=== PATIENT | female | born 1985 | race Caucasian/White ===

== ENCOUNTER 2019-01-16 14:29 | Emergency (ER) | payer SELFPAY ==
[2019-01-16 15:04] LABS: Hematocrit 46 % (35-47); Hemoglobin 15.8 g/dL (12.0-16.0); Mean Corpuscular HGB Conc 34 g/dL (31-36); Mean Corpuscular Hemoglobin 33 pg (27-31); Mean Corpuscular Volume 96 fL (80-97); Red Blood Count 4.83 10^6 /uL (3.70-4.87); Red Cell Distribution Width 14 % (10-15); White Blood Count 6.9 10^3/uL (3.5-10.8)
[2019-01-16 15:18] LABS: INR 1.08 (0.82-1.09)
[2019-01-16 15:26] LABS: ALT 14 U/L (7-52); AST 21 U/L (13-39); Albumin 4.5 g/dL (3.2-5.2); Albumin/Globulin Ratio 2.1 (1-3); Alkaline Phosphatase 58 U/L (34-104); Anion Gap 4 mmol/L (2-11); BUN/Creatinine Ratio 8.4 (8-20); Blood Urea Nitrogen 7 mg/dL (6-24); CO2 Carbon Dioxide 28 mmol/L (22-32); Calcium 9.2 mg/dL (8.6-10.3); Chloride 105 mmol/L (101-111); EGFR African American 94.7 (>60); EGFR Non-African American 78.2 (>60); Globulin 2.1 g/dL (2-4); Glucose 124 mg/dL (70-100); Potassium 4.5 mmol/L (3.5-5.0); Sodium 137 mmol/L (135-145); Total Protein 6.6 g/dL (6.4-8.9); Troponin I 0.01 ng/mL (<0.04)
[2019-01-16 15:36] LABS: ABS Eosinophils 0.1 10^3/ul (0-0.6); ABS Lymphocytes 1.7 10^3/ul (1.0-4.8); ABS Monocytes 0.4 10^3/ul (0-0.8); ABS Neutrophils 4.9 10^3/ul (1.5-7.7); Eosinophil % 1.4 %; Lymphocyte % 23.4 %; Mean Platelet Volume 11.3 fL (7.4-10.4); Nucleated Red Blood Cells % 0.1; Platelet Count 86 10^3/uL (150-450)
[2019-01-16 15:37] LABS: Large Platelets Present; Microcytosis 1+
--- NOTE | 2019-01-16 15:38 | ED ---
HPI Chest Pain - HPI Summary HPI Summary: Pt is a 33 y/o female presents at [facility] at 1609 w/ CC of CP. Pt states that the CP radiates to her left shoulder. Pt states she was getting ready for work at 1230 today, 01/16/19, when she felt pain in chest. Patient additionally notes feeling dizzy during this episode. She subsequently called her fiance. Pt reported that she was sweating and needed to remove clothing as a result. In order to cool down, pt jumped into shower. Pt stated that, during these episodes , if she does not have a BM and vomit she will pass out. Pt normally feels fatigued after these episodes and notes that her head is still cloudy. Chest pain lasted 20 minutes and is resolved at present. Pt reports that she does have a LACEY and bilateral blurry vision. LACEY is at left temporal area, she rates initial severity 8/10 and present severity 5/10. Double vision and visual field cuts are denied. Some photophobia is endorsed, but she denies head injury and LOC. She further notes some SOB and states that she feels "wheezy". Patient has not eaten today. Pt states that symptoms have been present before and last episode of Sx was 2-3 weeks ago. Pt added that episodes have been happening for the past two years. She additionally has upper abdominal pain characterized as cramping. Patient also notes some sore throat, left lower calf pain, and neck pain. She "maybe" feels dehydrated. Pt PCP is Francheska Khan NP. She is followed by a neurologist in [place]. She had an EEG done previously that is reported to have been normal. LNMP was 12/16/18. BP 124/83 O2sat 99, pulse 52. Pt also states that she has a low heart rate in the mid 50s at baseline. Pt confirms tobacco use as 1 ppd as well as occasional smoking of marijuana. Pt also reports rare EtOH use. PMHx of bipolar disorder, schizophrenia, gastritis, ITP, and asthma. Patient was formerly on depakote, hydroxyzine, and lamictal. She notes that she stopped taking these medications a month ago as result of insurance issues. She states that she is not followed by a geriatric nurse practitioner due to similar issues. She states that she is not on any regular medications. - History of Current Complaint Chief Complaint: EDGeneral Time Seen by Provider: 01/16/19 15:29 Hx Obtained From: Patient Hx Last Menstrual Period: 01/09/16 Onset/Duration: Started Hours Ago - 1230 Time of Onset: 12:30 Timing: Constant, Lasting Hours Initial Severity: Severe Current Severity: Moderate Pain Intensity: 8 Pain Scale Used: 0-10 Numeric Chest Pain Radiates: Yes Chest Pain Radiates To:: Shoulder - radiating into left shoulder Character: Other: - Abdominal pain described as cramping Alleviating Factor(s): Medication - excedrin previously reported to improve symptoms, Other: - Vomiting and BM Associated Signs and Symptoms: Positive: Chest Pain - radiating to left shoulder lasted about 20 mins, Vision Changes - Blurry vision, Headaches, Dizziness, Shortness of Breath - Positive photophobia, Negative LOC or head injury, Lightheadedness, Diaphoresis, Abdominal Pain - Cramping, Calf Pain/ Swelling - Left calf pain, Wheezing, Other: - Positive photophobia, neck pain, sore throat, Negative LOC and Head injury. Negative: Fever - Allergy/Home Medications Allergies/Adverse Reactions: Allergies Allergy/AdvReac Type Severity Reaction Status Date / Time amitriptyline Allergy Unknown Verified 01/16/19 14:43 Reaction Details aripiprazole [From Abilify] Allergy Agitation Verified 01/16/19 14:43 duloxetine [From Cymbalta] Allergy Unknown Verified 01/16/19 14:43 Reaction Details quetiapine [From Seroquel] Allergy Insomnia Verified 01/16/19 14:43 PMH/Surg Hx/FS Hx/Imm Hx Previously Healthy: No Endocrine/Hematology History: Reports: Other Endocrine/Hematological Disorders - ITP Respiratory History: Reports: Hx Asthma GI History: Reports: Other GI Disorders - Gastritis Psychiatric History: Reports: Hx Schizophrenia, Hx Bipolar Disorder - Surgical History Surgical History: Yes Surgery Procedure, Year, and Place: L Knee Infectious Disease History: No Infectious Disease History: Denies: Traveled Outside the [place] in Last 30 Days - Family History Known Family History: Positive: Cardiac Disease, Seizure Disorder - Social History Alcohol Use: Rare Hx Substance Use: Yes Substance Use Type: Reports: Marijuana Smoking Status (MU): Heavy Every Day Tobacco Smoker Type: Cigarettes Amount Used/How Often: 1 ppd Length of Time of Smoking/Using Tobacco: 17 yrs Have You Smoked in the Last Year: Yes Review of Systems Positive: Fatigue, Skin Diaphoresis. Negative: Fever Positive: Photophobia, Blurred Vision, Other - Negative visual field cuts. Negative: Diplopia Positive: Sore Throat Positive: Chest Pain Positive: Shortness Of Breath - Pt states she is wheezy and SOB Positive: Abdominal Pain - Burning Positive: Other - Positive neck pain and left calf pain. Negative head injury Skin: Negative Neurological: Other - Positive dizziness Positive: Headache Psychological: Normal All Other Systems Reviewed And Are Negative: Yes Physical Exam - Summary Physical Exam Summary: Appearance: Moderately Ill-appearing, moderate pain distress, well-nourished Skin: Warm, color reflects adequate perfusion, dry Head: Normal Head/Face inspection, atraumatic Eyes: Conjunctiva clear, PERRL, EOMI, visual hernandez normal by confrontation, denies blurry vision during this exam, both binocular and monocular ENT: Normal inspection, pharynx not red, no tonsillar hypertrophy or exudate, no uvula edema Neck: Supple, no nodes, no JVD Respiratory: Lungs clear, normal breath sounds, no respiratory distress Cardio: Brachycardic, No murmur, pulses normal, brisk capillary refill Abdomen: Soft, nontender Bowel sounds: Present Musculoskeletal: Strength Intact/ROM intact, no calf tenderness, no edema. Psychological: Normal Neuro: Alert, muscle tone normal, no focal deficit, CNII-XII intact, Motor 5/5, sensation intact, speech clear and coherent Triage Information Reviewed: Yes Vital Signs On Initial Exam: Initial Vitals Temp Pulse Resp BP Pulse Ox 97.4 F 48 16 128/72 100 01/16/19 14:39 01/16/19 14:39 01/16/19 14:39 01/16/19 14:39 01/16/19 14:39 Vital Signs Reviewed: Yes Diagnostics - Vital Signs Vital Signs Temp Pulse Resp BP Pulse Ox 01/16/19 14:39 97.4 F 48 16 128/72 100 - Laboratory Lab Results: Lab Results 01/16/19 01/16/19 01/16/19 Range/Units 14:57 14:57 14:57 WBC 6.9 (3.5-10.8) 10^3/uL RBC 4.83 (3.70-4.87) 10^6 /uL Hgb 15.8 (12.0-16.0) g/dL Hct 46 (35-47) % MCV 96 (80-97) fL MCH 33 H (27-31) pg MCHC 34 (31-36) g/dL RDW 14 (10-15) % Plt Count 86 L (150-450) 10^3/uL MPV 11.3 H (7.4-10.4) fL Neut % (Auto) 69.3 % Lymph % (Auto) 23.4 % [place] % (Auto) 5.4 % Eos % (Auto) 1.4 % Baso % (Auto) 0.5 % Absolute Neuts (auto) 4.9 (1.5-7.7) 10^3/ul Absolute Lymphs (auto) 1.7 (1.0-4.8) 10^3/ul Absolute Monos (auto) 0.4 (0-0.8) 10^3/ul Absolute Eos (auto) 0.1 (0-0.6) 10^3/ul Absolute Basos (auto) 0.0 (0-0.2) 10^3/ul Absolute Nucleated RBC 0.0 10^3/ul Nucleated RBC % 0.1 INR (Anticoag Therapy) 1.08 (0.82-1.09) Sodium 137 (135-145) mmol/L Potassium 4.5 (3.5-5.0) mmol/L Chloride 105 (101-111) mmol/L Carbon Dioxide 28 (22-32) mmol/L Anion Gap 4 (2-11) mmol/L BUN 7 (6-24) mg/dL Creatinine 0.83 (0.51-0.95) mg/dL Est GFR ( Amer) 94.7 (>60) Est GFR (Non-Af Amer) 78.2 (>60) BUN/Creatinine Ratio 8.4 (8-20) Glucose 124 H (70-100) mg/dL Calcium 9.2 (8.6-10.3) mg/dL Total Bilirubin 0.50 (0.2-1.0) mg/dL AST 21 (13-39) U/L ALT 14 (7-52) U/L Alkaline Phosphatase 58 (34-104) U/L Troponin I 0.01 (<0.04) ng/mL Total Protein 6.6 (6.4-8.9) g/dL Albumin 4.5 (3.2-5.2) g/dL Globulin 2.1 (2-4) g/dL Albumin/Globulin Ratio 2.1 (1-3) Result Diagrams: 01/16/19 14:57 01/16/19 14:57 Lab Statement: Any lab studies that have been ordered have been reviewed, and results considered in the medical decision making process. - CT CT Brain CT Interpretation Completed By: Radiologist Summary of CT Findings: IMPRESSION: NO ACTIVE INTRACRANIAL PATHOLOGY. This report has been reviewed by Dr. Busby Chest Xray CT Interpretation Completed By: Radiologist Summary of CT Findings: IMPRESSIONS: NO ACTIVE CARDIOPULMONARY DISEASE. This report has been reviewed by Dr. Busby - EKG 1432 Cardiac Rate: NL - 39 bpm EKG Rhythm: Sinus Bradycardia ST Segment: Normal Ectopy: None EKG Comparison: No Significant Change Summary of EKG Findings: An EKG at (1432) reveals nml AV/IV CT, nml QTc, and nml axis. No acute changes.ED MD has reviewed and interpreted this EKG. No proir to compare. Re-Evaluation - Re-Evaluation First Eval Re-Evaluation Time: 19:10 Change: Improved Comment: Pt reports feeling well and no pain or vomiting. Pt taking water w/o any symptoms. Pt feels ready to go home. Chest Pain Course/Dx - Course Course Of Treatment: Pt is a 33 y/o female presents at [facility] at 1609 w/ CC of CP. Pt states that the CP radiates to her left shoulder. Pt states she was getting ready for work at 1230 today, 01/16/19, when she felt pain in chest. Patient additionally notes feeling dizzy during this episode. Pt reported that she was sweating. In order to cool down, pt jumped into shower. Pt normally feels fatigued after these episodes and notes that her head is still cloudy. Chest pain lasted 20 minutes and is resolved at present. Pt reports that she does have a LACEY and bilateral blurry vision. Pt has PMH asthma, ITP, schizophrenia and bipolar disorder. Pt is currently off all meds that she DC'd on her own due to lack of insurance. On exam, pt is noted to be moderatly ill- appearing.Pain was relieved spontaneously. Pt is bradycardic in the 50's but states this is usual for her. Heart and lung exam and neuro exam are normal. Blood work shows Plt count is 86, Glucose is 124. Pt's platelet count is low, consistent with her ITP dx, but not at a dangerously low level for spontaneous bleed, and pt's CT brain is negative, therefore a brain bleed is not diagnosed in the presence of her thrombocytopenia. The UA is negative for signs of UTI. Toxicology shows Valproic Acid <13.0 and U Cannabinoids screen is Presumptive positive. Pt's CT Brain Impression: No Active intracranial Pathology. Chest Xray Impression: No Active Cardiopulmonary Disease. Pt was given Hydroxyzine 25 mg PO and Ibuprofen 600mg PO for reported anxiety and pain. Pt reports improvement of symptoms after administration of medications. Pt is ready to be discharged to home. Pt will f/u with PCP Francheska Khan NP. - Chest Pain Differential Diagnosis/HQI/PQRI: Acute NM, ACS, GI Disease, Pulmonary Embolism, Other: - CVA, seizure, migraine - Diagnoses Provider Diagnoses: Head ache, Chest pain, Bradycardia, Near syncope, Thrombocytopenia Discharge ED - Sign-Out/Discharge Documenting (check all that apply): Patient Departure - Discharge Patient Received Moderate/Deep Sedation with Procedure: No - Discharge Plan Condition: Stable Disposition: HOME Patient Education Materials: Near Syncope (ED) Forms: *Work Release Referrals: Francheska Khan [Nurse Practitioner] - 2 Days Additional Instructions: Your labs, CT brain and CXR did not show any significant abnormalities. You improved spontaneously in the ER. You should continue your evaluation with your doctor and your neurologist. Please return to the ER for any new or worsening symptoms. - Billing Disposition and Condition Condition: STABLE Disposition: Home - Attestation Statements Document Initiated by Ghislaine: Yes Documenting Scribe: Alma Lane Provider For Whom Ghislaine is Documenting (Include Credential): Nathalie Busby Scribe Attestation: Alma Contreras scribed for Nathalie Busby on 02/07/19 at 2313. Scribe Documentation Reviewed: Yes Provider Attestation: The documentation as recorded by the Alma virk accurately reflects the service I personally performed and the decisions made by Nathalie shepard Status of Scribe Document: Viewed
[2019-01-16] MEDS ORDERED: Ibuprofen TAB* 600 MG PO ONE (16:29)
[2019-01-16] MEDS ORDERED: hydrOXYzine HCL TAB* 25 MG PO ONE (16:33)
[2019-01-16 16:54] LABS: HCG Pregnancy < 0.60 mIU/mL
[2019-01-16 17:52] LABS: Urine Appearance Clear; Urine Bilirubin Negative (Negative); Urine Blood Negative (Negative); Urine Color Yellow; Urine Glucose Negative (Negative); Urine Ketones Negative (Negative); Urine Nitrite Negative (Negative); Urine Protein Negative (Negative); Urine Specific Gravity 1.004 (1.010-1.030); Urine Urobilinogen Negative (Negative)
[2019-01-16 18:16] LABS: Urine Benzodiazepine Screen None Detected (None Detect); Urine Opiates Screen None Detected (None Detect)
[2019-01-16 20:07] VITALS: BP 117/69
== END 2019-01-16 20:10 | disposition home or self-care (01) ==
LOC: ED 14:29
DX: R07.9 Chest pain, unspecified (principal); R51 Headache; R00.1 Bradycardia, unspecified; R55 Syncope and collapse; D69.6 Thrombocytopenia, unspecified; D69.3 Immune thrombocytopenic purpura; F31.9 Bipolar disorder, unspecified; F20.9 Schizophrenia, unspecified; K29.70 Gastritis, unspecified, without bleeding; F17.210 Nicotine dependence, cigarettes, uncomplicated; Z88.8 Allergy status to other drugs, medicaments and biological substances
CPT/HCPCS: 36415; 70450; 71045; 80053; 80164; 80307; 81003; 84484; 84702; 85025; 85379; 85610; 93005; 99284; A9270-GY